=== PATIENT | female | born 1990 | race African-American/Black ===

== ENCOUNTER 2016-05-03 08:41 | Emergency (ER) | payer MEDICAID, OTHER ==
[~2016-05-03] VITALS: Ht 175.3 cm; Wt 105.2 kg
[~2016-05-03 08:41] MED LIST: IBUPROFEN600 MG ORAL; NKM; NORCO 5-325 TA1 EACH ORAL
[2016-05-03] MEDS ORDERED: TYLENOL325 MG ORAL (09:21)
--- NOTE | 2016-05-03 09:24 | Emergency Room Report ---
History of Present Illness General Chief Complaint: Complications Source: Patient Present Illness HPI Patient is a 25-year-old female who presented after having increased vaginal discharge. Patient denied any vaginal itching. She reported having intermittent abdominal cramping. Patient denied any vaginal bleeding. Patient is approximately 8 weeks. Patient reports having a ultrasound which showed intrauterine . Patient states she's been recently seen by her own BR[employer] ATTENDANT. She denies recent fevers. Allergies: Coded Allergies: No Known Allergies (Unverified , 07/12/13) Patient History Past Medical History: see triage record Last Menstrual Period: dec Now: Yes - 2 months : 3 Para: 0 Reviewed Nursing Documentation: PMH: Agreed, PSxH: Agreed Review of Systems All Other Systems: negative except mentioned in HPI Physical Exam Vital Signs Date Time Temp Pulse Resp B/P Pulse Ox O2 Delivery O2 Flow Rate FiO2 05/03/16 08:52 97.7 110 18 124/67 98 Room Air Sp02 EP Interpretation: reviewed, normal General Appearance: normal inspection, well appearing, no apparent distress, alert, GCS 15 Head: atraumatic ENT: normal ENT inspection, hearing grossly normal, normal voice Neck: normal inspection, full range of motion, supple, no bony tend Respiratory: normal inspection, lungs clear, normal breath sounds, no respiratory distress, no retraction, no wheezing Cardiovascular #1: regular rate, rhythm, no edema Gastrointestinal: normal inspection, normal bowel sounds, non tender, soft, no guarding, no hernia Genitourinary: no CVA tenderness Musculoskeletal: normal inspection, back normal, normal range of motion Neurologic: normal inspection, alert, oriented x3, responsive, traveling storekeeper III-XII nml as tested, speech normal Psychiatric: normal inspection, judgement/insight normal, mood/affect normal Skin: normal inspection, normal color, no rash Medical Decision Making Diagnostic Impression: Primary Impression: ER Course Patient presented for and vaginal discharge. Differential diagnosis included was not limited to a yeast infection, physiologic discharge, bacterial vaginosis, gonorrhea, Chlamydia, among others. Patient's benign exam and does not appear to require any further imaging or laboratory testing at this time. The patient has previously had a pelvic ultrasound shows intrauterine . A pelvic exam showed no cervical motion tenderness with physiologic discharge.There was no bleeding noted cervical os appears to be closed. The patient is advised to follow up with [facility] ATTEND[facility] doctor in 1-2 days. Patient is advised to return if any worsening condition or if any changes in status that are concerning. Last Vital Signs Date Time Temp Pulse Resp B/P Pulse Ox O2 Delivery O2 Flow Rate FiO2 05/03/16 08:52 97.7 110 18 124/67 98 Room Air Status: improved Disposition: HOME, SELF-CARE Condition: Stable Scripts Acetaminophen (Tylenol) 325 Mg Tablet 650 MG ORAL Q6H Y for Prn Pain/Headache/Temp > 101, #30 TAB 0 Refills Prov: Yandel Baird 05/03/16 Patient Instructions: First Trimester of Yandel Baird May 03, 2016 09:24
[2016-05-03 09:31] VITALS: BP 115/78
== END 2016-05-03 09:31 | disposition home or self-care (01) ==
LOC: EMR 08:55
DX: O26.91 Pregnancy related conditions, unspecified, first trimester (principal); Z3A.08 8 weeks gestation of pregnancy
CPT/HCPCS: 81025; 99283